=== PATIENT | female | born 1950 | race Caucasian/White ===

== ENCOUNTER 2017-03-28 10:24 | Day surgery (SDC) | payer MEDICARE ==
[~2017-03-28 10:24] MED LIST: AMBIEN5 M1 PO; ATIVAN0.5 M1 PO; CATAPRES0.1 M1 PO; COZAAR100 M1 PO; CYMBALTA30 M1 PO; IBUPROFEN200 M2 PO; LIPITOR10 M1 PO; LISINOPRIL-HCT1 EAC3 PO; LYRICA75 MG/CAP PO; NEURONTIN300 M1 PO; NORVASC2.5 M1 PO; REMERON15 M1 PO
[2017-03-28 11:29] LABS: BASO % 0.6 % (0-2); BASO ABSOLUTE COUNT 0.1 tho/cmm (0.0-0.2); EOS % 0.6 % (0-7); EOSINOPHIL ABSOLUTE COUNT 0.1 tho/cmm (0.0-0.7); HCT-HEMATOCRIT 42.8 % (34.0-49.0); HGB-HEMOGLOBIN 14.7 gm/dl (12.0-15.5); IMMATURE GRANULOCYTES ABSOLUTE 0.02 tho/cmm (0-0.03); IMMATURE GRANULOCYTES PERCENT 0.2 % (0-0.3); LYMPH % 12.7 % (20-45); LYMPH ABSOLUTE COUNT 1.2 tho/cmm (0.8-4.5); MCH (MEAN CORPUSCULAR HGB) 29.5 pg (28.0-32.0); MCHC MEAN CORPUSCULAR HGB CONC 34.3 % (32.0-36.0); MCV (MEAN CELL VOLUME) 85.8 fl (82.0-96.0); MEAN PLATELET VOLUME 10.7 cmc (9.4-12.4); MONO % 4.3 % (0-12); MONOCYTE ABSOLUTE COUNT 0.4 tho/cmm (0.0-1.2); NEUTROPHIL ABSOLUTE COUNT 7.7 tho/cmm (1.6-8.0); NEUTROPHIL-AUTOMATED 7.7 tho/cmm (1.6-8.0); NEUTROPHILS % 81.6 % (40-80); PLATELET COUNT 221 tho/cmm (150-450); RED BLOOD COUNT 4.99 mil/cmm (4.00-5.20); WHITE BLOOD COUNT 9.4 tho/cmm (4.0-10.0)
[2017-03-28 11:33] LABS: INR 0.8 INR (0.9-1.1); PROTHROMBIN TIME 9.8 SECONDS (9.0-13.6)
[2017-03-28 13:27] LABS: CSF GLUCOSE 69 mg/dl (40-75)
[2017-03-28 13:30] LABS: CSF APPEARANCE CLEAR (CLEAR); CSF COLOR COLORLESS (COLORLESS); CSF RBC CT 1 cmm (0); CSF TUBE NUMBER CSF TUBE 3; CSF WBC CT 1 cmm (0-10)
== END 2017-03-28 14:40 ==
LOC: RADSP 10:24 → SHSB 10:27
PROVIDERS: Psychiatry & Neurology Neurology; Radiology Diagnostic Radiology
PROC: 009U3ZX Drainage of Spinal Canal, Percutaneous Approach, Diagnostic (ICD-10-PCS; principal; 2017-03-28)
PROC: B01BZZZ Fluoroscopy of Spinal Cord (ICD-10-PCS; 2017-03-28)
DX: R20.8 Other disturbances of skin sensation (principal); Z88.0 Allergy status to penicillin; Z87.891 Personal history of nicotine dependence; Z90.89 Acquired absence of other organs; Z98.890 Other specified postprocedural states
CPT/HCPCS: J7030